=== PATIENT | male | born 1950 | race Caucasian/White ===

== ENCOUNTER 2019-02-07 05:02 | Emergency (ER) | payer OTHER, SELFPAY ==
--- NOTE | 2019-02-07 05:04 | DI.RAD.S_ITS ---
PROCEDURE: XR CHEST 1V INDICATIONS: Chest pain TECHNIQUE: One view of the chest was acquired. COMPARISON: None. FINDINGS: Surgical changes and devices: None. Lungs and pleura: Lungs are clear. No pleural effusions or pneumothorax. Mediastinum: Mediastinal contours appear normal. Heart size is normal. Bones and chest wall: No suspicious bony lesions. Overlying soft tissues appear unremarkable. IMPRESSION: No acute cardiopulmonary disease process. Dictated by: Michelle Upton MD, PhD on 02/07/2019 at 9:45 Approved by: Michelle Upton MD, PhD on 02/07/2019 at 9:45
[2019-02-07 05:12] VITALS: BP 160/74; PULSE 56; RESP 16; TEMP 36.9; O2SAT 98; BMI 30.1
--- NOTE | 2019-02-07 05:20 | ED.CHESTPAIN ---
HPI - Chest Pain General Chief Complaint: Chest Pain Stated Complaint: chest pain 1/2 hr ago has hx Time Seen by Provider: 02/07/19 05:03 Source: patient and family Mode of arrival: Ambulatory Limitations: no limitations History of Present Illness HPI narrative: 69-year-old male with history of coronary artery disease. Back in 2017 he stated that he had a event that led to stents and angioplasty in his LAD. Stated that approximately half an hour prior to arrival here in the emergency department he was lying on his left side sleeping and was woken up by sharp left-sided chest pain that went away when he rolled onto his back. He states that he does not think it was associated with palpation. No shortness of breath. The time was visit here to the emergency department he was symptom free. Patient states that 48 hours ago he was seen at a outside emergency department and [facility] for chest discomfort. He states that it was slightly different than what brought him into the emergency department today. He states that time he had labs, EKG, echocardiogram and a nuclear stress test that were all low risk. He states that he was seen by orthotic/prosthetic practitioner and was ?given a clean bill of health ? Related Data Home Medications Medication Instructions Recorded Confirmed aspirin 81 mg PO HS #0 09/30/16 esomeprazole magnesium [Nexium] 40 mg PO BID #0 09/30/16 lovastatin 40 mg PO HS #0 09/30/16 Allergies Allergy/AdvReac Type Severity Reaction Status Date / Time No Known Allergies Allergy Uncoded 06/24/17 13:02 Review of Systems Constitutional Constitutional: Denies fever(s) Cardiovascular Cardiovascular: Reports chest pain, Denies palpitations and Denies dyspnea Respiratory Respiratory: Denies dyspnea Gastrointestinal Gastrointestinal: Denies abdominal pain, Denies nausea and Denies vomiting Musculoskeletal Musculoskeletal: Denies myalgias and Denies arthralgias Integumentary/Breasts Skin/Breast: Denies rash Neurologic Neurologic: Denies behavioral changes Psychiatric Psychiatric: Denies behavioral changes Endocrine Endocrine: Denies palpitations Hematologic/Lymphatic Hematologic/Lymphatic: Denies easy bleeding and Denies easy bruising Patient History Medical History Coronary artery disease (Acute) Gastroesophageal reflux disease (Acute) Social History Smoking Status: Never smoker alcohol intake frequency: a few times a month Exam Initial Vital Signs Initial Vital Signs: Vital Signs Temperature 98.4 F 02/07/19 05:12 Pulse Rate 56 L 02/07/19 05:12 Respiratory Rate 16 02/07/19 05:12 Blood Pressure 160/74 H 02/07/19 05:12 Pulse Oximetry 98 02/07/19 05:12 Const General: cooperative, comfortable and well developed Orientation: alert, awake and oriented x3 HENMT Head: normal to inspection and normocephalic Chest Chest: No tenderness Resp Effort & Inspection: normal respiratory effort Auscultation: clear to auscultation bilaterally Cardio Rate: regular rate Rhythm: regular rhythm GI Inspection: non-distended Palpation: soft, No firm and No tender Skin Lesions: no lesions Rashes: no rashes Neuro General: alert, awake and oriented x3 Cognition: normal cognition Speech: speech normal Gait: normal gait Extrem General: normal to inspection and capillary refill normal Psych Appearance: grossly normal and well kempt Course Orders Ordered: ED Orders 02/07/19 05:04 XR chest 1V Stat Complete Blood Count AUTO DIFF Stat Comprehensive Metabolic Panel Stat Lipase Stat Troponin I Stat EKG-12 Lead Stat Vital Signs Vital signs: Vital Signs - 8 hr 02/07/19 05:12 02/07/19 05:23 Temperature 98.4 F Pulse Rate 56 L 49 L Respiratory Rate 16 16 Blood Pressure 160/74 H Blood Pressure [Right Arm] 160/74 H Pulse Oximetry 98 97 MDM - Chest Pain Imaging Data Chest x-ray: Attestation: I personally reviewed and interpreted this imaging study as follows: My impression: No pneumothorax, normal size heart ECG Data Attestation: I personally reviewed and interpreted this ECG as follows: Prior ECG tracings: not available for review Interpretation: Sinus bradycardia Ventricular rate of 49 Normal axis QRS duration 115 milliseconds Normal QTC No ST T wave changes MDM Narrative Medical decision making narrative: I did have the specific paperwork from his visit 48 hours ago however the patient's had discharge paperwork with him. On that paperwork and stated that he did have a nuclear medicine stress test that was low risk. The patient states that he also had an echocardiogram and also was evaluated by orthotic/prosthetic practitioner. His symptoms today are not consistent with cardiac etiology. Was a sharp pain that completely resolved when he rolled on his back. This is more consistent with musculoskeletal etiology. His chest x-ray was unremarkable. This is all in the setting of having after fairly extensive workup 48 hours ago. His EKG is unremarkable. Feel like we could hold on laboratory testing for now. I tried to provide reassurance to the patient and his . They did expressed understanding of this. They are going to contact his orthotic/prosthetic practitioner and his primary doctor later today. He was given return precautions. Expressed understanding and agreement with plan. Discharge Plan Departure Patient Disposition: Home Clinical Impression: Atypical chest pain Instructions: DI for Atypical Chest Pain Activity Restrictions/Additional Instructions: Continue all of your medications as directed. I do recommend that you contact your primary provider and your orthotic/prosthetic practitioner today to discuss any further workup. Return to the emergency department for any new or worsening symptoms Prescriptions: No Action lovastatin 40 MG tablet 40 mg PO HS Qty: 0 RF: 0 aspirin 81 MG tablet,delayed release (DR/EC) 81 mg PO HS Qty: 0 RF: 0 esomeprazole magnesium [Nexium] 40 MG capsule,delayed release(DR/EC) 40 mg PO BID Qty: 0 RF: 0 Referrals: Jordan Lemus MD [Primary Care Provider] -
[2019-02-07 05:23] VITALS: BP 160/74; PULSE 49; RESP 16; O2SAT 97
== END 2019-02-07 05:53 | disposition home or self-care (01) ==
PROVIDERS: Emergency Provider Emergency Medicine; Family Provider Family Medicine; PCP Family Medicine
DX: R07.89 Other chest pain (principal); R00.1 Bradycardia, unspecified; I24.9 Acute ischemic heart disease, unspecified
CPT/HCPCS: 71045; 93005; 99283; 99284

== ENCOUNTER → 2019-12-21 10:39 | Outpatient (CLI) | payer OTHER, SELFPAY ==
--- NOTE | 2019-12-21 | DI.RAD.S_ITS ---
PROCEDURE: FL BARIUM SWALLOW INDICATIONS: ACID REFLUX COMPARISON: [facility], , BARIUM SWALLOW, 01/20/2017, 13:02. FINDINGS: Function: There is normal esophageal peristalsis. There is a moderate degree of both spontaneous and elicited gastroesophageal reflux. There is a small to moderate-sized sliding hiatal hernia without evidence of distal esophageal stricture erosion or mass. Morphology: Air-contrast images demonstrate normal mucosal morphology. Single contrast views show no esophageal strictures, extrinsic mass effects, or diverticula. Limited images of the stomach demonstrate normal appearance. IMPRESSION: Small to moderate sliding hiatal hernia with moderate episodic spontaneous and elicited gastroesophageal reflux. The esophagus does not show evidence of stricture or mass, or erosions. Reflux was seen to extend cephalad toward the glottic level at several points in the examination. Dictated by: Wan Scott M.D. on 12/21/2019 at 13:00 Approved by: Wan Scott M.D. on 12/21/2019 at 13:27
== END ==
PROVIDERS: Family Provider Family Medicine; PCP Family Medicine; Referring Provider Family Medicine; Visit Provider Family Medicine
DX: K21.9 Gastro-esophageal reflux disease without esophagitis (principal); K44.9 Diaphragmatic hernia without obstruction or gangrene
CPT/HCPCS: 74220

== ENCOUNTER → 2020-02-23 09:32 | Outpatient (CLI) | payer OTHER, SELFPAY ==
[2020-02-23 11:20] LABS: COVID19 -Nasal RAPID Negative (Negative)
== END ==
PROVIDERS: PCP Family Medicine; Visit Provider Surgery
DX: Z01.812 Encounter for preprocedural laboratory examination (principal); Z20.828 Contact with and (suspected) exposure to other viral communicable diseases
CPT/HCPCS: 87635; C9803

== ENCOUNTER 2020-02-24 08:53 | Day surgery (SDC) | payer OTHER, SELFPAY ==
[2020-02-24] VITALS (13 sets, daily range): BP systolic 94–115; BP diastolic 57–72; PULSE 54–65; RESP 10–16; TEMP 36.1–36.4; O2SAT 92–96; BMI 31.5
--- NOTE | 2020-02-24 | PATH_ITS ---
[facility] Accession Number: [id number] . 01 Material submitted: . PART A: duodenum - DUODENUM PART B: stomach - STOMACH PART C: stomach - STOMACH POLYP PART D: esophagus - DISTAL ESOPHAGUS . 02 Diagnosis: A. Duodenum, Biopsy: Duodenal mucosa with no diagnostic abnormality. Negative for active inflammation, features of sprue, dysplasia, or malignancy. . B. Stomach, Biopsy: Gastric antral mucosa with mild chronic inflammation. Negative for Helicobacter organisms by immunohistochemistry. Negative for intestinal metaplasia. Negative for dysplasia or malignancy. . C. Stomach Polyp, Biopsy: Fundic gland polyp. No evidence of Helicobacter organisms on H/E stain. Negative for intestinal metaplasia. Negative for dysplasia and malignancy. . D. Distal Esophagus, Biopsies: Squamous mucosa with mild reactive features of reflux esophagitis. Focally up to 10 eosinophils per high-power field. No columnar mucosa present for evaluation. Negative for dysplasia or malignancy. Additional step sections examined. [facility] 02/29/2020 1226 Local . 02 Electronically signed: . Dion Tilley MD, PhD, Pathologist NPI- [id number] . 01 Gross description: . Part A: DUODENUM: Received in formalin is 1 fragment(s) of avina, soft tissue measuring 0.4 x 0.3 x 0.1 cm submitted entirely in 1 cassette(s) Part B: STOMACH: Received in formalin are 4 fragment(s) of avina, soft tissue measuring 0.3 x 0.3 x 0.1 cm to 0.1 x 0.1 x 0.1 cm submitted entirely in 1 cassette(s) Part C: STOMACH POLYP: Received in formalin are 2 fragment(s) of avina, soft tissue measuring 0.6 x 0.3 x 0.4 cm to 0.4 x 0.4 x 0.3 cm submitted entirely in 1 cassette(s) Part D: DISTAL ESOPHAGUS: Received in formalin are 3 fragment(s) of avina, soft tissue measuring 0.4 x 0.3 x 0.1 cm to 0.2 x 0.1 x 0.1 cm submitted entirely in 1 cassette(s) /QBJ 02/25/2020 1023 Local . 02 Microscopic: . B) An immunohistochemical stain was performed to evaluate for Helicobacter organisms and is negative. The control stain showed appropriate reactivity. . * This test was developed and its performance characteristics determined by [facility]. It has not been cleared or approved by the U.S. Food and Drug Administration. The FDA has determined that such clearance or approval is not necessary. This test is used for clinical purposes. It should not be regarded as investigational or for research. . 02 Pathologist provided ICD-10: K29.70, K31.7, K20.90 . 02 CPT . 666620, 258437, 664908, 177246, F81888 Performed at: 01 [facility] [address] [place] [address], [place], [place] [id number] MD Eliud Khan MD Phone: [phone] Performed at: 02 [facility] [address] [place], [place] [id number] MD Leonor Cardoso MD Phone: [phone]
[2020-02-24] MEDS: SODIUM CHLORIDE 0.9% 1,000 ML 200 ML IV (09:15)
--- NOTE | 2020-02-24 10:21 | PM.PREOP ---
Pre-operative Note COVID-19 COVID-19 status: Negative Result date/Date tested (Pos, Neg/Pending): 02/23/20 Interval Note History & Physical reviewed/Exam performed by Physician: Yes Changes to H&P: No ASA Class (for procedural sedation): II
--- NOTE | 2020-02-24 10:34 | P.OP.ENDO_ITS ---
Operative Date/Time/Diagnoses Date of procedure: 02/24/20 Time of procedure: 10:34 Pre-op diagnosis: History of Sims's esophagus, due for surveillance Post-op diagnosis: other (Normal appearing duodenum, benign-appearing gastric polyps, 5 cm hiatal hernia without ulceration, otherwise normal appearing distal esophagus without visible esophagitis) Procedure & Clinicians Study performed: Esophagogastroduodenoscopy Procedural sedation performed by the endoscopist Biopsies of duodenum, stomach, distal esophagus with standard forceps Removal of gastric polyp with cold snare Same procedure as scheduled: Yes Indications: History of Sims's esophagus; due for surveillance Surgeon: Maricruz Trinh Procedure Notes SCOAP/Timeout: Performed Procedure in detail: The patient was brought to the room and placed in left lateral decubitus position with all bony prominences padded. A bite block was positioned in the patient's mouth to protect the lips, teeth, and tongue for the procedure. A time-out was performed and then the patient was given procedural sedation starting with 4 mg of Versed and 100 mcg of fentanyl. Additional 2 mg of Versed were given during the procedure. Vitals were monitored throughout the procedure and remained stable. Once adequately sedated, the procedure was begun. The lubricated gastroscope was passed through the bite block and across the tongue and into the esophagus without incident. A tubular view of the esophagus was maintained as the scope was advanced through the esophagus and into the stomach. The scope was advanced through the stomach and to the pylorus. The scope was gently popped through the pylorus and into the duodenal bulb. The scope was flexed and advanced into the second and third portions of the duodenum. The duodenum and duodenal bulb appeared normal. Biopsies were taken. The scope was withdrawn into the stomach. There were many benign- appearing gastric polyps, consistent with PPI use. The stomach otherwise appeared normal. Two gastric polyps were removed and sent for pathology. Biopsies were taken of the stomach to rule out H pylori. The scope was retroflexed and the gastric cardia was examined. Hill grade 2-3 hiatal hernia was seen with mild gaping around the scope. No Jake ulcers or other abnormalities were seen. The scope was then straightened, and withdrawn into the esophagus. The crural pinch was seen at 40 cm, and the line of 35 cm, indicative of a 5 cm hiatal hernia. The Z-line appeared otherwise normal. The distal esophagus appeared normal. No visual evidence of esophagitis or Sims's esophagus Biopsies were taken. The scope was then withdrawn through the esophagus with a tubular view. The scope was then withdrawn from the patient the procedure was concluded. The patient tolerated the procedure well and was transferred to the PACU in stable condition. Sedation minutes: 15 Findings: hiatal hernia (5 cm, without complications) and other findings (Gastric polyps) Specimen(s): other (Biopsies of duodenum, distal esophagus, stomach. Gastric polyps.) Complications: none Impression: Well controlled up reflux disease with PPI use. Benign-appearing gastric polyps which was secondary to PPI use. Moderate hiatal hernia, without signs of complication. Post-procedure Recommendations: EGD in 3 years (Depending on biopsy results. We will send a final confirmatory letter once biopsy results return.) Follow up: as needed Disposition: PACU
[2020-02-24] MEDS: fentaNYL 250 MCG/5 ML INJ IV (10:37)
[2020-02-24] MEDS: LIDOCAINE 4% SOLN 50 ML 20 ML TOP (10:38)
[2020-02-24] MEDS: MIDAZOLAM 5 MG/5 ML VIAL IV (10:40)
--- NOTE | 2020-02-24 11:31 | SUR.PHASEI ---
report received, assume care at this time.
== END 2020-02-24 12:11 | disposition home or self-care (01) ==
PROVIDERS: PCP Family Medicine; Referring Provider Surgery; Visit Provider Surgery
PROC: 0DJ08ZZ Inspection of Upper Intestinal Tract, Via Natural or Artificial Opening Endoscopic (ICD-10-PCS; CPT 43235; principal; 2020-02-24 10:00)
DX: K21.00 Gastro-esophageal reflux disease with esophagitis, without bleeding (principal); I25.10 Atherosclerotic heart disease of native coronary artery without angina pectoris; I10 Essential (primary) hypertension; E66.9 Obesity, unspecified; Z68.32 Body mass index [BMI] 32.0-32.9, adult; K44.9 Diaphragmatic hernia without obstruction or gangrene; K31.7 Polyp of stomach and duodenum; K29.50 Unspecified chronic gastritis without bleeding
CPT/HCPCS: 43239; 99152; J2250; J3010

== ENCOUNTER 2020-08-01 04:27 | Emergency (ER) | payer OTHER, SELFPAY ==
--- NOTE | 2020-08-01 04:35 | ED_ITS ---
HPI - General Adult General Chief complaint: Abdominal Pain Stated complaint: tightness in abdomen,has to work to breathe/stent Time Seen by Provider: 08/01/20 04:30 History of Present Illness HPI narrative: 70-year-old gentleman with a history of hypertension, cardiac stents placed in 2017, Sims's esophagus, chronic constipation controlled with daily MiraLax presents with mid abdominal tightness that was significant enough that he was unable to get to sleep again. Does not describe it as ?pain?. It lasted approximately 40 minutes and currently is minimally noticeable. He desc ribes passing gas and normal bowel movements. No fever, cough, chills, dyspnea although he does work note that he felt like he had to work harder to breathe well the upper abdominal tightness was present. States that this pain is not like that that led to his recent stents. He states he has some chronic right shoulder pain and actually has an appointment scheduled later today with orthopedic surgeon for further evaluation. Also notes that he had a nuclear stress test at [facility] in [place] in February of 2020 that was reportedly unremarkable. Related Data Home Medications Medication Instructions Recorded Confirmed aspirin 81 mg PO HS #0 09/30/16 08/01/20 esomeprazole magnesium [Nexium] 40 mg PO BID #0 09/30/16 08/01/20 atorvastatin 40 mg tablet 40 mg PO DAILY 01/26/20 08/01/20 isosorbide mononitrate 30 mg 30 mg PO DAILY 01/26/20 08/01/20 tablet,extended release 24 hr lisinopril 2.5 mg tablet 2.5 mg PO DAILY 01/26/20 08/01/20 metoprolol succinate 25 mg capsule 25 mg PO DAILY 01/26/20 08/01/20 sprinkle, ext. release 24 hr Allergies Allergy/AdvReac Type Severity Reaction Status Date / Time No Known Drug Allergies Allergy Verified 02/24/20 09:06 Review of Systems Review of Systems Narrative: Remainder of complete review of systems is otherwise unremarkable e xcept for that included in the HPI. Patient History Medical History (Updated 08/01/20 @ 06:02 by Jovanna Hameed MD) Barretts esophagus Coronary artery disease Gastroesophageal reflux disease Sleep apnea Surgical History History of intravascular stent placement Family History Unknown Hypertension Heart disease Social History household members: spouse Smoking Status: Never smoker Smoking Status: Never smoker alcohol intake frequency: a few times a week Substance Use Type: does not use Exam Narrative Exam Narrative: General: Healthy appearing, in no acute distress. Able to give a complete and coherent history. Well-nourished well-developed HEENT: Moist mucous membranes, normal sclera with reactive pupils, Neck: No JVD, supple Respiratory: Lungs are clear to auscultation, no wheezing no rales no rhonchi. Full and symmetrical air movement Cardiac: Regular rate and rhythm no murmurs no bruits Abdomen: Soft, nontender, good bowel tones, no flank pain Skin: Warm and dry, no rashes Neurologic: Grossly neurologically intact with no obvious asymmetries or abnormalities Extremities: No trauma, well perfused Psych: Cooperative, appropriate insight and affect Initial Vital Signs Initial Vital Signs: Vital Signs Temperature 98.2 F 08/01/20 04:38 Pulse Rate 54 L 08/01/20 04:38 Respiratory Rate 17 08/01/20 04:38 Blood Pressure 164/74 H 08/01/20 04:38 Pulse Oximetry 98 08/01/20 04:38 Course Orders Ordered: ED Orders 08/01/20 EKG-12 Lead Stat 08/01/20 04:55 Complete Blood Count AUTO DIFF Stat Comprehensive Metabolic Panel Stat Lipase Stat Troponin I Stat 08/01/20 04:56 XR chest 1V Stat Vital Signs Vital signs: Vital Signs - 8 hr 08/01/20 04:38 Temperature 98.2 F Pulse Rate 54 L Respiratory Rate 17 Blood Pressure 164/74 H Pulse Oximetry 98 Medical Decision Making Medical Records Medical records reviewed: Yes I reviewed the patient's medical records. Lab Data Lab results reviewed: Yes I reviewed the patient's lab results. Result diagrams: 08/01/20 04:55 08/01/20 04:55 Labs: Lab Results 08/01/20 08/01/20 Range/Units 04:55 04:55 WBC 6.9 (4.5-11.0) X10^3/uL RBC 4.63 (4.5-5.9) X10^6/uL Hgb 15.1 (13.5-17.5) g/dL Hct 43.8 (41-53) % MCV 94.6 (80-100) fL MCH 32.5 (26-34) PG MCHC 34.4 (30-36) % RDW 12.4 (11.6-14.8) % Plt Count 240 (150-400) X10^3/uL Neut % (Auto) 40.8 L (50-75) % Lymph % (Auto) 41.9 H (25-40) % Wilbarger % (Auto) 8.8 (3-14) % Eos % (Auto) 5.4 H (2-4) % Baso % (Auto) 3.1 H (0-2) % Neut # (Auto) 2800 (0675-7942) /uL Lymph # (Auto) 2900 (4467-1613) /uL Wilbarger # (Auto) 600 (0-900) /uL Eos # (Auto) 400 (0-450) /uL Baso # (Auto) 200 H (0-100) /uL Sodium 141 (137-145) mmol/L Potassium 4.3 (3.4-5.1) mmol/L Chloride 107 (98-107) mmol/L Carbon Dioxide 27 (22-32) mmol/L BUN 13 (9-20) mg/dL Creatinine 0.88 (0.66-1.25) mg/dL Estimated GFR > 60.0 (>60) mL/min BUN/Creatinine Ratio 14.8 (6-22) Glucose 111 H (80-110) mg/dL Calcium 8.9 (8.4-10.2) mg/dL Total Bilirubin 0.5 (0.2-1.3) mg/dL AST 38 (17-59) IU/L ALT 38 (<50) IU/L Alkaline Phosphatase 80 (38-126) U/L Troponin I < 0.012 (0.01-0.034) ng/mL Total Protein 7.1 (6.3-8.2) g/dL Albumin 4.1 (3.5-5.0) g/dL Globulin 3.0 (1.7-4.1) g/dL Albumin/Globulin Ratio 1.4 (1.0-2.8) Lipase 109 (23-300) U/L Imaging Data Chest x-ray: Radiologist's Impression: No acute findings Hernandez Willson MD ECG Data Attestation: I personally reviewed and interpreted this ECG as follows: Interpretation: Sinus rhythm at a rate of 57 Normal intervals, normal axis No acute ischemic changes MDM Narrative Medical decision making narrative: 70-year-old gentleman presents with 40 minutes of tightness over the upper section of his abdomen that now has essentially resolved. Nuclear medicine stress testing within the last 6 months was unremarkable. He has no abdominal pain on exam at this time. It was not specifically associated with food. Lipase and LFTs are normal. He is not tender over the right upper quadrant/gallbladder area. EKG, chest x-ray and troponins are all unremarkable. At this point do not 6 affect acute coronary syndrome, pneumonia, cholecystitis or acute cholelithiasis, GI bleeding, pancreatitis. Quality of pain and exam do not support abdominal aneurysm or aneurysm rupture. Do not suspect aortic dissection. Constipation could certainly be part of the issue. If he has recurrent episodes of similar pain than right upper quadrant ultrasound might be warranted. With no evidence of life-threatening issues apparent today, reassurance is given. Reviewed all labs and findings. Patient is safe for home discharge Discharge Plan Departure Patient Disposition: Home Clinical Impression: Abdominal pain Qualifiers: Abdominal location: upper abdomen, unspecified Qualified Code(s): R10.10 - Upper abdominal pain, unspecified Instructions: DI for Abdominal Pain-Adult Activity Restrictions/Additional Instructions: Thank you for coming in today I did not find life-threatening cause to explain your pain today. Specifically I found no evidence for heart attack or heart attack like syndrome, bleeding in her stomach, pneumonia, liver or gallbladder problems pancreatitis. Given the upper abdominal span of the tightness, it may be that this is your transverse colon. If pain resolves after your next bowel movement it would suggest that it is related to your colon. If you have worsening pain or develop new symptoms please feel free to return to the emergency department in a.m. happy to rethink and re-evaluate. I hope you feel better Prescriptions: No Action aspirin 81 MG tablet,delayed release (DR/EC) 81 mg PO HS Qty: 0 RF: 0 esomeprazole magnesium [Nexium] 40 MG capsule,delayed release(DR/EC) 40 mg PO BID Qty: 0 RF: 0 metoprolol succinate 25 mg capsule,sprinkle,ER 24hr 25 mg PO DAILY RF: 0 lisinopril 2.5 mg tablet 2.5 mg PO DAILY RF: 0 atorvastatin 40 mg tablet 40 mg PO DAILY RF: 0 isosorbide mononitrate 30 mg tablet extended release 24 hr 30 mg PO DAILY RF: 0
[2020-08-01 04:38] VITALS: BP 164/74; PULSE 54; RESP 17; TEMP 36.8; O2SAT 98; BMI 31.5
[2020-08-01 04:56] VITALS: BP 133/67; PULSE 52; RESP 13; O2SAT 97
--- NOTE | 2020-08-01 04:56 | DI.RAD.S_ITS ---
PROCEDURE: XR CHEST 1V INDICATIONS: chest and upper abdominal pain TECHNIQUE: One view of the chest was acquired. COMPARISON: [facility], CR, XR CHEST 1V, 02/07/2019, 5:15. FINDINGS: Surgical changes and devices: None. Lungs and pleura: Lungs are clear. No pleural effusions or pneumothorax. Mediastinum: Mediastinal contours appear normal. Heart size is normal. Bones and chest wall: No suspicious bony lesions. Overlying soft tissues appear unremarkable. IMPRESSION: No acute cardiopulmonary disease process. Dictated by: Michelle Upton MD, PhD on 08/01/2020 at 9:09 Approved by: Michelle Upton MD, PhD on 08/01/2020 at 9:09
[2020-08-01 05:02] VITALS: BP 131/60; PULSE 54; RESP 12; O2SAT 96
[2020-08-01 05:07] LABS: Add Manual Diff / Slide Review NO; Basophils Absolute Auto 200 /uL (0-100); Basophils Percent Auto 3.1 % (0-2); Eosinophils Absolute Auto 400 /uL (0-450); Eosinophils Percent Auto 5.4 % (2-4); Hematocrit 43.8 % (41-53); Hemoglobin 15.1 g/dL (13.5-17.5); Lymphocytes Absolute Auto 2900 /uL (1100-4500); Lymphocytes Percent Auto 41.9 % (25-40); Mean Corpuscular HGB Conc 34.4 % (30-36); Mean Corpuscular Hemoglobin 32.5 PG (26-34); Mean Corpuscular Volume 94.6 fL (80-100); Monocytes Absolute Auto 600 /uL (0-900); Monocytes Percent Auto 8.8 % (3-14); Neutrophils Absolute Auto 2800 /uL (1500-7000); Neutrophils Percent Auto 40.8 % (50-75); Platelet Count 240 X10^3/uL (150-400); Red Blood Cell Count 4.63 X10^6/uL (4.5-5.9); Red Cell Distribution Width 12.4 % (11.6-14.8); White Blood Cell Count 6.9 X10^3/uL (4.5-11.0)
[2020-08-01 05:12] LABS: Alanine Aminotransferase 38 IU/L (<50); Albumin 4.1 g/dL (3.5-5.0); Albumin Globulin Ratio 1.4 (1.0-2.8); Alkaline Phosphatase 80 U/L (38-126); Aspartate Aminotransferase 38 IU/L (17-59); BUN Creatinine Ratio 14.8 (6-22); Bilirubin Total 0.5 mg/dL (0.2-1.3); Blood Urea Nitrogen 13 mg/dL (9-20); Calcium 8.9 mg/dL (8.4-10.2); Carbon Dioxide 27 mmol/L (22-32); Chloride 107 mmol/L (98-107); Estimated Glomerular Filt Rate > 60.0 mL/min (>60); Glucose 111 mg/dL (80-110); HEMOLYSIS 38 (0-50); Lipase 109 U/L (23-300); Potassium 4.3 mmol/L (3.4-5.1); Sodium 141 mmol/L (137-145); Total Protein 7.1 g/dL (6.3-8.2)
[2020-08-01 05:23] LABS: Troponin I < 0.012 ng/mL (0.01-0.034)
[2020-08-01 05:30] VITALS: BP 131/71; PULSE 51; RESP 11; O2SAT 95
[2020-08-01 06:17] VITALS: BP 149/80; PULSE 50; RESP 18; O2SAT 96
== END 2020-08-01 06:12 | disposition home or self-care (01) ==
PROVIDERS: Emergency Provider Emergency Medicine
DX: R10.10 Upper abdominal pain, unspecified (principal); R07.9 Chest pain, unspecified
CPT/HCPCS: 36415; 71045; 80053; 83690; 84484; 85025; 93005; 93010; 99283; 99284

== ENCOUNTER → 2021-02-19 07:34 | Outpatient (CLI) | payer OTHER, SELFPAY ==
[2021-02-19 07:57] LABS: Add Manual Diff / Slide Review NO; Basophils Absolute Auto 0 /uL (0-100); Basophils Percent Auto 0.6 % (0-2); Eosinophils Absolute Auto 300 /uL (0-450); Eosinophils Percent Auto 4.2 % (2-4); Hemoglobin 15.3 g/dL (13.5-17.5); Lymphocytes Absolute Auto 2700 /uL (1100-4500); Lymphocytes Percent Auto 39.3 % (25-40); Mean Corpuscular HGB Conc 34.8 % (30-36); Mean Corpuscular Hemoglobin 32.1 PG (26-34); Mean Corpuscular Volume 92.3 fL (80-100); Monocytes Absolute Auto 600 /uL (0-900); Monocytes Percent Auto 9.3 % (3-14); Neutrophils Absolute Auto 3200 /uL (1500-7000); Neutrophils Percent Auto 46.6 % (50-75); Platelet Count 259 X10^3/uL (150-400); Red Blood Cell Count 4.77 X10^6/uL (4.5-5.9); Red Cell Distribution Width 12.6 % (11.6-14.8); White Blood Cell Count 6.8 X10^3/uL (4.5-11.0)
[2021-02-19 08:06] LABS: Hemoglobin A1C% w Est Avg Glu 5.5 % (4.0-6.0)
[2021-02-19 08:10] LABS: Alanine Aminotransferase 42 IU/L (<50); Albumin 4.5 g/dL (3.5-5.0); Albumin Globulin Ratio 1.4 (1.0-2.8); Alkaline Phosphatase 74 U/L (38-126); Aspartate Aminotransferase 41 IU/L (17-59); BUN Creatinine Ratio 18.8 (6-22); Bilirubin Total 1.1 mg/dL (0.2-1.3); Blood Urea Nitrogen 18 mg/dL (9-20); Calcium 9.4 mg/dL (8.4-10.2); Carbon Dioxide 27 mmol/L (22-32); Chloride 103 mmol/L (98-107); Cholesterol 166 mg/dL (140-199); Estimated Glomerular Filt Rate > 60.0 mL/min (>60); Globulin 3.2 g/dL (1.7-4.1); Glucose 120 mg/dL (80-110); HDL Cholesterol 53 mg/dL (40-60); HEMOLYSIS 29 (0-50); LDL Cholesterol Calculated 83 mg/dL (<100); Potassium 5.1 mmol/L (3.4-5.1); Sodium 138 mmol/L (137-145); Total Protein 7.7 g/dL (6.3-8.2); Triglycerides 151 mg/dL (35-150)
[2021-02-19 08:38] LABS: Prostate Specific Antigen Scrn 1.05 ng/mL (0.1-4.0)
[2021-02-19 08:40] LABS: TSH w/ Reflex to FT4 1.85 uIU/mL (0.47-4.68)
== END ==
PROVIDERS: PCP Family Medicine; Referring Provider Family Medicine; Visit Provider Family Medicine
DX: E66.9 Obesity, unspecified (principal); I25.10 Atherosclerotic heart disease of native coronary artery without angina pectoris; E78.5 Hyperlipidemia, unspecified; R53.83 Other fatigue; Z00.00 Encounter for general adult medical examination without abnormal findings; Z12.5 Encounter for screening for malignant neoplasm of prostate
CPT/HCPCS: 36415; 80053; 80061; 83036; 84443; 85025; G0103

== ENCOUNTER → 2021-05-04 09:45 | Outpatient (CLI) | payer OTHER, SELFPAY ==
[2021-05-04 10:08] LABS: Add Manual Diff / Slide Review NO; Basophils Absolute Auto 0 /uL (0-100); Basophils Percent Auto 0.6 % (0-2); Eosinophils Absolute Auto 200 /uL (0-450); Eosinophils Percent Auto 2.7 % (2-4); Hematocrit 44.4 % (41-53); Hemoglobin 15.5 g/dL (13.5-17.5); Lymphocytes Absolute Auto 1700 /uL (1100-4500); Lymphocytes Percent Auto 26.5 % (25-40); Mean Corpuscular HGB Conc 34.8 % (30-36); Mean Corpuscular Hemoglobin 32.4 PG (26-34); Mean Corpuscular Volume 92.9 fL (80-100); Monocytes Absolute Auto 400 /uL (0-900); Monocytes Percent Auto 6.8 % (3-14); Neutrophils Absolute Auto 4100 /uL (1500-7000); Neutrophils Percent Auto 63.4 % (50-75); Platelet Count 251 X10^3/uL (150-400); Red Blood Cell Count 4.78 X10^6/uL (4.5-5.9); White Blood Cell Count 6.5 X10^3/uL (4.5-11.0)
[2021-05-04 10:13] LABS: Appearance Urine UA CLEAR; Bilirubin Urine UA NEGATIVE (NEGATIVE); Color Urine UA YELLOW; Glucose Urine UA NEGATIVE (Negative); Ketones Urine UA NEGATIVE (NEGATIVE); Leukocyte Esterase Urine UA NEGATIVE (NEGATIVE); Nitrite Urine UA NEGATIVE (Negative); Occult Blood Urine UA NEGATIVE (Negative); Protein Urine UA NEGATIVE (Negative); Specific Gravity Urine UA <=1.005 (1.000-1.035); Urobilinogen Urine UA 0.2 E.U./dL (0.2); pH Urine UA 6.5 (4.5-8.0)
[2021-05-04 10:18] LABS: Alanine Aminotransferase 43 IU/L (<50); Albumin 4.6 g/dL (3.5-5.0); Albumin Globulin Ratio 1.3 (1.0-2.8); Alkaline Phosphatase 93 U/L (38-126); Aspartate Aminotransferase 46 IU/L (17-59); BUN Creatinine Ratio 20.2 (6-22); Blood Urea Nitrogen 19 mg/dL (9-20); Carbon Dioxide 29 mmol/L (22-32); Chloride 105 mmol/L (98-107); Estimated Glomerular Filt Rate > 60.0 mL/min (>60); Globulin 3.5 g/dL (1.7-4.1); Glucose 115 mg/dL (80-110); HEMOLYSIS < 15 (0-50); Lipase 92 U/L (23-300); Potassium 4.9 mmol/L (3.4-5.1); Sodium 137 mmol/L (137-145); Total Protein 8.1 g/dL (6.3-8.2)
== END ==
PROVIDERS: PCP Family Medicine; Referring Provider Physician Assistant; Visit Provider Physician Assistant
DX: R10.9 Unspecified abdominal pain (principal)
CPT/HCPCS: 36415; 80053; 81003; 83690; 85025

== ENCOUNTER → 2021-06-25 12:33 | Outpatient (CLI) | payer OTHER, SELFPAY ==
--- NOTE | 2021-06-25 | DI.RAD.S_ITS ---
PROCEDURE: XR HAND LT MIN 3V INDICATIONS: left 4th finger injury TECHNIQUE: Three views of the hand acquired. COMPARISON: None. FINDINGS: Bones: A small minimally displaced intra-articular fracture is seen at the radial volar base of the 4th proximal phalanx. Soft tissues: No suspicious soft tissue calcifications. IMPRESSION: Small minimally displaced intra-articular fracture at the radial aspect of the 4th proximal phalanx. Dictated by: Tomás Carias M.D. on 06/25/2021 at 16:19 Approved by: Tomás Carias M.D. on 06/25/2021 at 16:20
== END ==
PROVIDERS: PCP Family Medicine; Referring Provider Family Medicine; Visit Provider Family Medicine
DX: S62.645A Nondisplaced fracture of proximal phalanx of left ring finger, initial encounter for closed fracture (principal); X58.XXXA Exposure to other specified factors, initial encounter
CPT/HCPCS: 73130

== ENCOUNTER → 2021-07-06 13:05 | Outpatient (CLI) | payer OTHER, SELFPAY ==
[2021-07-06 14:06] LABS: Influenza A - CEPHEID Flu A NEGATIVE (NEGATIVE); Influenza B - CEPHEID Flu B NEGATIVE (NEGATIVE)
[2021-07-06 14:39] LABS: COVID-19 CEPHEID PCR (VTM/NP) POSITIVE (Negative)
== END ==
PROVIDERS: PCP Family Medicine; Visit Provider Nurse Practitioner Family
DX: U07.1 COVID-19 (principal); R05.9 Cough, unspecified; Z20.822 Contact with and (suspected) exposure to COVID-19
CPT/HCPCS: 0240U

== ENCOUNTER → 2021-10-01 08:09 | Outpatient (CLI) | payer OTHER, SELFPAY ==
--- NOTE | 2021-10-01 | DI.US.S_ITS ---
PROCEDURE: US ABD AORTA ANEURYSM SCREEN INDICATIONS: AAA SCREENING TECHNIQUE: Real time scanning was performed of the aorta and iliac arteries, with image documentation. COMPARISON: [facility], US, ABDOMEN COMPLETE, 06/24/2012, 11:06. [facility], US, ABDOMEN COMPLETE, 09/21/2014, 9:05. [facility], CT, ABDOMEN/PELVIS WITH CONTRAST, 01/04/2016, 7:31. FINDINGS: Aorta: Proximal aortic diameter measures 2.7 cm. Mid-aorta measures 2 cm. Distal aortic diameter is 1.8 cm. Iliac arteries: Right common iliac artery measures 1 cm. Left common iliac artery measures 1.1 cm. IMPRESSION: Negative for aneurysm. Dictated by: Chino Rivers M.D. on 10/01/2021 at 9:25 Approved by: Chino Rivers M.D. on 10/01/2021 at 9:27
== END ==
PROVIDERS: PCP Family Medicine; Referring Provider Family Medicine; Visit Provider Family Medicine
DX: Z13.6 Encounter for screening for cardiovascular disorders (principal)
CPT/HCPCS: 76706

== ENCOUNTER → 2023-01-08 14:28 | Outpatient (CLI) | payer OTHER, SELFPAY ==
--- NOTE | 2023-01-08 | DI.US.S_ITS ---
PROCEDURE: US SCROTUM INDICATIONS: right testicular pain TECHNIQUE: Real-time scanning was performed of the scrotum and testicles, with image documentation. Color and pulse Doppler interrogation was performed of both testicles. COMPARISON: None. FINDINGS: Right: Testicle is normal in size at 4.1 x 2.3 x 3.5 cm, and homogenous in echotexture. Epididymis is normal in overall size and morphology. Moderate hydrocele. No varicoceles. Overlying scrotal skin is normal in thickness. Left: Testicle is normal in size at 4.1 x 2.9 x 3.4 cm, and homogeneous in echotexture. Epididymis is normal in overall size and morphology. Small hydrocele. No varicoceles. Overlying scrotal skin is normal in thickness. Doppler: Color and pulse Doppler demonstrate normal and symmetric arterial flow in both testicles. IMPRESSION: 1. Normal testicles bilaterally. No findings to suggest testicular torsion. No testicular mass. 2. Normal epididymis bilaterally. 3. Moderate right and small left hydroceles. Dictated by: Luz Romero M.D. on 01/08/2023 at 16:09 Approved by: Luz Romero M.D. on 01/08/2023 at 16:11
== END ==
PROVIDERS: PCP Family Medicine; Referring Provider Family Medicine; Visit Provider Family Medicine
DX: N50.811 Right testicular pain (principal); N43.3 Hydrocele, unspecified
CPT/HCPCS: 76870

== ENCOUNTER 2023-07-11 17:51 | Emergency (ER) | payer OTHER, SELFPAY ==
[2023-07-11] VITALS (7 sets, daily range): BP systolic 129–149; BP diastolic 64–76; PULSE 52–63; RESP 7–18; TEMP 36.7; O2SAT 95–99; BMI 29.4
--- NOTE | 2023-07-11 17:54 | DI.RAD.S_ITS ---
PROCEDURE: XR CHEST 1V INDICATIONS: chest pain TECHNIQUE: One view of the chest was acquired. COMPARISON: [facility], CR, XR CHEST 1V, 08/01/2020, 5:08. FINDINGS: Surgical changes and devices: None. Lungs and pleura: Lungs are clear. No pleural effusions or pneumothorax. Mediastinum: Mediastinal contours appear normal. Heart size is normal. Bones and chest wall: No suspicious bony lesions. Overlying soft tissues appear unremarkable. IMPRESSION: No acute cardiopulmonary abnormality is seen. Dictated by: Kamila Colorado M.D. on 07/11/2023 at 18:17 Approved by: Kamila Colorado M.D. on 07/11/2023 at 18:17
--- NOTE | 2023-07-11 17:59 | ED.CHESTPAIN ---
HPI - Chest Pain General Chief Complaint: Chest Pain Stated Complaint: chest pain Time Seen by Provider: 07/11/23 17:55 History of Present Illness HPI narrative: Patient is a 73-year-old male history of coronary artery disease with stent, hyperlipidemia presenting today with chest pain. He is followed by [facility] head and nuclear stress test September 2022. States that while he was on a ladder screwing things into a wall he had areas of pinpoint pain lasted less than a minute. Quickly resolved then at dinner he turned his neck and again there were same areas of pain. It has not really reproducible to palpation he denies any shortness of breath. He says this feels nothing like his previous heart attack when he pain radiating up to his jaw and into his back. He reports that he did just travel to [place] they drove for couple hours in the car. Denies any leg swelling Related Data Home Medications Medication Instructions Recorded Confirmed aspirin 81 mg tablet,delayed 81 mg PO HS ##0 09/30/16 10/13/22 release atorvastatin 40 mg tablet 40 mg PO DAILY 01/26/20 10/13/22 isosorbide mononitrate 30 mg 30 mg PO DAILY 01/26/20 10/13/22 tablet,extended release 24 hr lisinopril 2.5 mg tablet 2.5 mg PO DAILY 01/26/20 10/13/22 metoprolol succinate 25 mg capsule 25 mg PO DAILY 01/26/20 10/13/22 sprinkle, ext. release 24 hr pantoprazole 40 mg tablet,delayed 40 mg PO DAILY 08/04/22 10/13/22 release Allergies Allergy/AdvReac Type Severity Reaction Status Date / Time No Known Drug Allergies Allergy Verified 07/11/23 18:02 Patient History Medical History Barretts esophagus Coronary artery disease Gastroesophageal reflux disease Sleep apnea Surgical History History of intravascular stent placement Family History Unknown Hypertension Heart disease Social History household members: spouse Smoking Status: Never smoker Smoking Status: Never smoker alcohol intake frequency: a few times a week Substance Use Type: does not use Exam Initial Vital Signs Initial Vital Signs: Vital Signs Temperature 98.1 F 07/11/23 17:59 Pulse Rate 63 07/11/23 17:59 Respiratory Rate 16 07/11/23 17:59 Blood Pressure 147/76 H 07/11/23 17:59 Pulse Oximetry 99 07/11/23 17:59 Oxygen Delivery Method Room Air 07/11/23 17:59 GENERAL: Alert pleasant well-appearing 73-year-old male and in no acute distress. HEENT: Head atraumatic,EOMI, pupils reactive, face symmetric, moist mucous membranes CARDIOVASCULAR: Regular rate and rhythm without murmurs, rubs or gallops. Pain is not reproducible with palpation RESPIRATORY: Breath sounds equal bilaterally, no wheezes rales or rhonchi. ABDOMEN: Soft, nontender. Normoactive bowel sounds all 4 quadrants. No guarding or rebound. EXTREMITIES: Normal range of motion, no clubbing or edema. Neurovascularly intact NEUROLOGICAL: Alert and oriented x4.Normal gait and speech. SKIN: Warm, dry, no laceration, no petechiae, no rashes or lesions. Scores HEART Score Heart Score history: Slightly Suspicious Heart Score EKG: Normal Heart Score Age: > or = 65 years old Heart Score risk factors: > 3 risk factors or hx of atherosclerotic disease Heart Score troponin: < or = to normal limit Heart Score Total: 4 Course Orders Ordered: ED Orders 07/11/23 17:54 XR chest 1V Stat 07/11/23 18:02 D Dimer Stat 07/11/23 18:03 EKG-12 Lead Stat 07/11/23 18:05 Complete Blood Count AUTO DIFF Stat Comprehensive Metabolic Panel Stat Lipase Stat Magnesium Stat PTT Partial Thromboplastin [place] Stat Prothrombin Time INR Stat Troponin & CK Cardiac Panel Stat 07/11/23 20:10 Troponin I Stat 07/11/23 20:20 EKG-12 Lead Routine Discontinued Medications Sodium Chloride (Sodium Chloride 0.9% Flush) 10 ml IV BID LIONEL Sodium Chloride (Sodium Chloride 0.9% Flush) 10 ml IV PRN PRN PRN Reason: Flush Vital Signs Vital signs: Vital Signs - 8 hr 07/11/23 17:59 07/11/23 18:13 07/11/23 18:30 Temperature 98.1 F Pulse Rate 63 60 56 L Respiratory Rate 16 18 7 L Blood Pressure 147/76 H Pulse Oximetry 99 96 96 Oxygen Delivery Method Room Air 07/11/23 18:30 07/11/23 19:00 07/11/23 19:00 Temperature Pulse Rate 54 L Respiratory Rate 12 Blood Pressure 129/64 132/71 Pulse Oximetry 95 Oxygen Delivery Method 07/11/23 19:30 07/11/23 19:30 07/11/23 20:00 Temperature Pulse Rate 54 L 52 L Respiratory Rate 10 L 18 Blood Pressure 149/71 H Pulse Oximetry 95 95 Oxygen Delivery Method 07/11/23 20:00 07/11/23 20:30 07/11/23 20:30 Temperature Pulse Rate 53 L Respiratory Rate 16 Blood Pressure 138/69 142/73 H Pulse Oximetry 96 Oxygen Delivery Method MDM - Chest Pain Lab Data 07/11/23 18:05 07/11/23 18:05 Labs: Lab Results 07/11/23 07/11/23 07/11/23 Range/Units 18:02 18:05 20:10 WBC 7.6 (4.5-11.0) X10^3/uL RBC 4.76 (4.5-5.9) X10^6/uL Hgb 15.6 (13.5-17.5) g/dL Hct 45.6 (41-53) % MCV 95.7 (80-100) fL MCH 32.7 (26-34) PG MCHC 34.2 (30-36) % RDW 12.9 (11.6-14.8) % Plt Count 237 (150-400) X10^3/uL Neut % (Auto) 57.6 (50-75) % Lymph % (Auto) 31.2 (25-40) % [place] % (Auto) 6.9 (3-14) % Eos % (Auto) 3.8 (2-4) % Baso % (Auto) 0.5 (0-2) % Neut # (Auto) 4400 (9831-0287) /uL Lymph # (Auto) 2400 (1839-5037) /uL [place] # (Auto) 500 (0-900) /uL Eos # (Auto) 300 (0-450) /uL Baso # (Auto) 0 (0-100) /uL PT 11.1 (9.4-12.5) SECONDS INR 1.0 (0.9-1.3) APTT 37 H (25.1-36.5) SECONDS D-Dimer < 215 (<500) ng/ml Sodium 139 (137-145) mmol/L Potassium 4.1 (3.4-5.1) mmol/L Chloride 105 (98-107) mmol/L Carbon Dioxide 28 (22-32) mmol/L BUN 22 H (9-20) mg/dL Creatinine 0.97 (0.66-1.25) mg/dL Estimated GFR > 60 (>60) mL/min BUN/Creatinine Ratio 22.7 H (6-22) Glucose 130 H (80-110) mg/dL Calcium 9.2 (8.4-10.2) mg/dL Magnesium 2.3 (1.6-2.3) mg/dL Total Bilirubin 1.0 (0.2-1.3) mg/dL AST 40 (17-59) IU/L ALT 43 (<50) IU/L Alkaline Phosphatase 71 (38-126) U/L Total Creatine Kinase 434 H (55-170) U/L Troponin I < 0.012 < 0.012 (0.01-0.034) ng/mL Total Protein 7.9 (6.3-8.2) g/dL Albumin 4.8 (3.5-5.0) g/dL Globulin 3.1 (1.7-4.1) g/dL Albumin/Globulin Ratio 1.5 (1.0-2.8) Lipase 89 (23-300) U/L Imaging Data Chest x-ray: Radiologist's Impression: PROCEDURE: XR CHEST 1V INDICATIONS: chest pain TECHNIQUE: One view of the chest was acquired. COMPARISON: [facility], , XR CHEST 1V, 08/01/2020, 5:08. FINDINGS: Surgical changes and devices: None. Lungs and pleura: Lungs are clear. No pleural effusions or pneumothorax. Mediastinum: Mediastinal contours appear normal. Heart size is normal. Bones and chest wall: No suspicious bony lesions. Overlying soft tissues appear unremarkable. IMPRESSION: No acute cardiopulmonary abnormality is seen. Dictated by: Kamila Colorado M.D. on 07/11/2023 at 18:17 Approved by: Kamila Colorado M.D. on 07/11/2023 at 18:17 ECG Data Interpretation: Normal sinus rhythm rate 65 NC interval 166 QRS 110 QTC 420 or noted in lead 3 with T-wave inversions similar to previous EKGs in 2020 EKG 2. Sinus rhythm rate 53 no ischemic changes similar to previous MDM Narrative Medical decision making narrative: Patient 73-year-old male history of coronary artery disease presents today with chest pain. He has had 2 episodes of chest discomfort today lasting less than a minute. He is 2- troponins and negative chest x-ray. He did recently travel his D-dimer is negative he has a negative years score. Chest x-ray has been reviewed and negative EKG has been reviewed no ischemic changes Patient does have known coronary artery disease no the stent in his LAD over symptoms of chest discomfort lasting less than 1 minute are unlikely to be cardiac. No ischemic changes and negative troponins also reassuring. He had a nuclear stress test less than 1 year ago which was also negative boy do not have specific record of that. He recently traveled on a car trip considered pulmonary embolism however D-dimer is negative years score is also 0 no need for further evaluation. This time recommend he follow-up with umbrella finisher and return as needed YEARS Algorithm for Pulmonary Embolism (PE) from [employer] on 07/11/2023 All calculations should be rechecked by clinician prior to use RESULT SUMMARY: PE excluded YEARS algorithm rules out PE (0.43% with symptomatic VTE during 3-month follow-up) INPUTS: patient ?> 0 = No Clinical signs of DVT ?> 0 = No Hemoptysis ?> 0 = No PE most likely diagnosis ?> 0 = No D-dimer >=,000 ng/mL ?> 0 = No Discharge Plan Departure Patient Disposition: Home Clinical Impression: Atypical chest pain Instructions: DI for Atypical Chest Pain Activity Restrictions/Additional Instructions: *You have been diagnosed with atypical chest pain *What to do: At this time blood work is overall reassuring. I do strongly recommend that you call and follow up with your umbrella finisher. *Continue to take medications as directed *Follow up with your primary care provider in 2-3 days or call [phone] *Return to ER if you should have increasing chest pain shortness of breath [or] any new, worsening or concerning symptoms Prescriptions: No Action aspirin 81 MG tablet,delayed release (DR/EC) 81 mg PO HS Qty: 0 metoprolol succinate 25 mg capsule,sprinkle,ER 24hr 25 mg PO DAILY lisinopril 2.5 mg tablet 2.5 mg PO DAILY atorvastatin 40 mg tablet 40 mg PO DAILY isosorbide mononitrate 30 mg tablet extended release 24 hr 30 mg PO DAILY pantoprazole 40 mg tablet,delayed release (DR/EC) 40 mg PO DAILY Referrals: Marco Stark MD [Primary Care Provider] - Stand Alone Forms: Patient Portal/API
[2023-07-11 18:13] LABS: Add Manual Diff / Slide Review NO; Basophils Absolute Auto 0 /uL (0-100); Basophils Percent Auto 0.5 % (0-2); Eosinophils Absolute Auto 300 /uL (0-450); Eosinophils Percent Auto 3.8 % (2-4); Hematocrit 45.6 % (41-53); Hemoglobin 15.6 g/dL (13.5-17.5); Lymphocytes Absolute Auto 2400 /uL (1100-4500); Lymphocytes Percent Auto 31.2 % (25-40); Mean Corpuscular HGB Conc 34.2 % (30-36); Mean Corpuscular Hemoglobin 32.7 PG (26-34); Mean Corpuscular Volume 95.7 fL (80-100); Monocytes Absolute Auto 500 /uL (0-900); Monocytes Percent Auto 6.9 % (3-14); Neutrophils Absolute Auto 4400 /uL (1500-7000); Neutrophils Percent Auto 57.6 % (50-75); Platelet Count 237 X10^3/uL (150-400); Red Blood Cell Count 4.76 X10^6/uL (4.5-5.9); Red Cell Distribution Width 12.9 % (11.6-14.8); White Blood Cell Count 7.6 X10^3/uL (4.5-11.0)
[2023-07-11 18:23] LABS: Prothrombin Time 11.1 SECONDS (9.4-12.5)
[2023-07-11 18:26] LABS: PTT Partial Thromboplastin Tim 37 SECONDS (25.1-36.5)
[2023-07-11 18:28] LABS: Alanine Aminotransferase 43 IU/L (<50); Albumin 4.8 g/dL (3.5-5.0); Albumin Globulin Ratio 1.5 (1.0-2.8); Alkaline Phosphatase 71 U/L (38-126); Aspartate Aminotransferase 40 IU/L (17-59); BUN Creatinine Ratio 22.7 (6-22); Blood Urea Nitrogen 22 mg/dL (9-20); Calcium 9.2 mg/dL (8.4-10.2); Carbon Dioxide 28 mmol/L (22-32); Chloride 105 mmol/L (98-107); Creatine Kinase 434 U/L (55-170); Estimated Glomerular Filt Rate > 60 mL/min (>60); Globulin 3.1 g/dL (1.7-4.1); Glucose 130 mg/dL (80-110); HEMOLYSIS < 15 (0-50); Lipase 89 U/L (23-300); Magnesium 2.3 mg/dL (1.6-2.3); Potassium 4.1 mmol/L (3.4-5.1); Sodium 139 mmol/L (137-145); Total Protein 7.9 g/dL (6.3-8.2)
[2023-07-11 18:39] LABS: Troponin I < 0.012 ng/mL (0.01-0.034)
[2023-07-11 18:43] LABS: D Dimer < 215 ng/ml (<500)
[2023-07-11 20:43] LABS: Troponin I < 0.012 ng/mL (0.01-0.034)
== END 2023-07-11 21:06 | disposition home or self-care (01) ==
PROVIDERS: Emergency Provider Emergency Medicine; PCP Family Medicine
DX: R07.89 Other chest pain (principal); I25.10 Atherosclerotic heart disease of native coronary artery without angina pectoris; Z95.5 Presence of coronary angioplasty implant and graft
CPT/HCPCS: 36415; 71045; 80053; 82550; 83690; 83735; 84484; 85025; 85379; 85610; 85730; 93005; 99283; 99284

== ENCOUNTER → 2023-09-09 07:23 | Outpatient (CLI) | payer OTHER, SELFPAY ==
[2023-09-09 08:06] LABS: Hemoglobin A1C% w Est Avg Glu 5.7 % (4.0-6.0)
[2023-09-09 09:41] LABS: Cholesterol 136 mg/dL (140-199); HDL Cholesterol 50 mg/dL (40-60); LDL Cholesterol Calculated 73 mg/dL (<100); Triglycerides 67 mg/dL (35-150)
== END ==
LOC: LAB 07:24
PROVIDERS: PCP Family Medicine; Referring Provider Family Medicine; Visit Provider Family Medicine
DX: R73.03 Prediabetes (principal); E78.5 Hyperlipidemia, unspecified; I25.10 Atherosclerotic heart disease of native coronary artery without angina pectoris; I10 Essential (primary) hypertension
CPT/HCPCS: 36415; 80061; 83036

== ENCOUNTER → 2024-01-22 14:07 | Outpatient (CLI) | payer OTHER, SELFPAY ==
[2024-01-22 15:41] LABS: Microalbumin Urine Random < 0.6 mg/dL (0-1.6)
[2024-01-22 18:04] LABS: Creatinine Urine Random 19.85 mg/dL
== END ==
PROVIDERS: PCP Family Medicine; Referring Provider Family Medicine; Visit Provider Family Medicine
DX: I10 Essential (primary) hypertension (principal)
CPT/HCPCS: 82043; 82570

== ENCOUNTER 2024-01-31 06:33 | Emergency (ER) | payer OTHER, SELFPAY ==
[2024-01-31 06:39] VITALS: BP 191/86; PULSE 63; RESP 18; TEMP 36.5; O2SAT 97; BMI 30.1
--- NOTE | 2024-01-31 06:43 | ED_ITS ---
HPI - URI/Sore Throat <Lise Acevedo MD - Last Filed: 01/31/24 21:16> General Chief Complaint: Upper Respiratory Symptoms Stated Complaint: swollen throat, cant swallow Time Seen by Provider: 01/31/24 06:34 Source: patient Mode of arrival: Ambulatory History of Present Illness HPI Narrative: 74-year-old male with history of coronary artery disease, prediabetes presents with 1 day of sore throat with painful swallowing. Patient states that yesterday symptoms started, seeming to be worse on the left-hand side. He took a dose of ibuprofen last night, but this morning he continued to have a sore throat and felt like there was swelling present. He took his vitals at home and he says that his baseline heart rate was 10-15 points higher than his baseline. He had a negative home COVID test but was concerned he may have strep throat so he decided to present for evaluation. Denies fevers, voice changes, other complaints Related Data Home Medications Medication Instructions Recorded Confirmed aspirin 81 mg tablet,delayed 81 mg PO HS ##0 09/30/16 01/22/24 release isosorbide mononitrate 30 mg 30 mg PO DAILY 01/26/20 01/22/24 tablet,extended release 24 hr lisinopril 2.5 mg tablet 2.5 mg PO DAILY 01/26/20 01/22/24 metoprolol succinate 25 mg capsule 25 mg PO DAILY 01/26/20 01/22/24 sprinkle, ext. release 24 hr empagliflozin 25 mg tablet 25 mg PO DAILY Pre Diabetes 01/22/24 01/22/24 (Jardiance) Previous Rx's Medication Instructions Recorded empagliflozin 25 mg tablet 25 mg PO DAILY #90 tabs 07/26/23 (Jardiance) Contour Next test strips #100 ea 10/12/23 atorvastatin 40 mg tablet 80 mg (2 x 40 mg) PO DAILY #180 12/22/23 tabs esomeprazole magnesium 20 mg 20 mg PO BID #180 caps 01/11/24 capsule,delayed release Allergies Allergy/AdvReac Type Severity Reaction Status Date / Time No Known Drug Allergies Allergy Verified 01/22/24 13:51 Patient History <Lise Acevedo MD - Last Filed: 01/31/24 21:16> Medical History Acute coronary syndrome Barretts esophagus (12/27/19) Sleep apnea Gastroesophageal reflux disease Coronary artery disease Surgical History History of intravascular stent placement Family History Unknown Hypertension Heart disease Social History household members: spouse Smoking Status: Never smoker alcohol intake: current (6-7 servings weekly) substance use type: does not use Smoking Status: Never smoker alcohol intake frequency: a few times a week Substance Use Type: does not use Exam <Lise Acevedo MD - Last Filed: 01/31/24 21:16> Initial Vital Signs Initial Vital Signs: Vital Signs Temperature 97.7 F 01/31/24 06:39 Pulse Rate 63 01/31/24 06:39 Respiratory Rate 18 01/31/24 06:39 Blood Pressure 191/86 H 01/31/24 06:39 Pulse Oximetry 97 01/31/24 06:39 Oxygen Delivery Method Room Air 01/31/24 06:39 Const: Awake, alert, no acute distress, nontoxic appearing HEENT: pharyneal erythema with moderate edema, no obvious exudates. No peritonsillar abscess present Skin: Warm, Dry, intact, no rashes Neuro: AO x3, CN II-XII grossly intact, moves all extremities <Jordan Wills DO - Last Filed: 01/31/24 08:20> Initial Vital Signs Initial Vital Signs: Vital Signs Temperature 97.7 F 01/31/24 06:39 Pulse Rate 63 01/31/24 06:39 Respiratory Rate 18 01/31/24 06:39 Blood Pressure 191/86 H 01/31/24 06:39 Pulse Oximetry 97 01/31/24 06:39 Oxygen Delivery Method Room Air 01/31/24 06:39 Course <Lise Acevedo MD - Last Filed: 01/31/24 21:16> Orders Ordered: Discontinued Medications Dexamethasone (Dexamethasone 10 Mg/Ml Vial) 10 mg PO NOW ONE Stop: 01/31/24 06:43 Last Admin: 01/31/24 06:46 Dose: 10 mg Documented By: LS Lidocaine HCl (Lidocaine Viscous 2% 15 Ml Solution) 15 ml PO NOW ONE Stop: 01/31/24 06:43 Last Admin: 01/31/24 06:46 Dose: 15 ml Documented By: MICHAEL Vital Signs Vital signs: Vital Signs - 8 hr 01/31/24 06:39 01/31/24 07:00 01/31/24 07:15 Temperature 97.7 F Pulse Rate 63 61 64 Respiratory Rate 18 Blood Pressure 191/86 H Pulse Oximetry 97 96 96 Oxygen Delivery Method Room Air 01/31/24 07:15 01/31/24 07:30 Temperature Pulse Rate 60 Respiratory Rate Blood Pressure 137/73 Pulse Oximetry 94 Oxygen Delivery Method <Jordan Wills DO - Last Filed: 01/31/24 08:20> Orders Ordered: Discontinued Medications Dexamethasone (Dexamethasone 10 Mg/Ml Vial) 10 mg PO NOW ONE Stop: 01/31/24 06:43 Last Admin: 01/31/24 06:46 Dose: 10 mg Documented By: MICHAEL Lidocaine HCl (Lidocaine Viscous 2% 15 Ml Solution) 15 ml PO NOW ONE Stop: 01/31/24 06:43 Last Admin: 01/31/24 06:46 Dose: 15 ml Documented By: MICAHEL Vital Signs Vital signs: Vital Signs - 8 hr 01/31/24 06:39 01/31/24 07:00 01/31/24 07:15 Temperature 97.7 F Pulse Rate 63 61 64 Respiratory Rate 18 Blood Pressure 191/86 H Pulse Oximetry 97 96 96 Oxygen Delivery Method Room Air 01/31/24 07:15 01/31/24 07:30 Temperature Pulse Rate 60 Respiratory Rate Blood Pressure 137/73 Pulse Oximetry 94 Oxygen Delivery Method MDM - URI/Sore Throat <Lise Acevedo MD - Last Filed: 01/31/24 21:16> Lab Data Labs: Lab Results 01/31/24 01/31/24 Range/Units 06:48 07:52 SARS-CoV-2 (PCR) Negative (Negative) Influenza A (RT-PCR) Flu a negative (NEGATIVE) Influenza B (RT-PCR) Flu b negative (NEGATIVE) RSV (PCR) Negative (Negative) Group A Strep (PCR) Negative (Negative) MDM Narrative Medical decision making narrative: 1 day of pharyngitis symptoms. Patient does appear to have some erythema and mild to moderate edema on exam, no evidence of peritonsillar abscess. Vital signs unremarkable in the emergency department. Patient only endorses prediabetes, a dose of Decadron given for sore throat and tonsillar edema. Viscous lidocaine ordered for comfort. Strep and flu swabs ordered for assessment. <Jordan Wills, DO - Last Filed: 01/31/24 08:20> Lab Data Labs: Lab Results 01/31/24 01/31/24 Range/Units 06:48 07:52 SARS-CoV-2 (PCR) Negative (Negative) Influenza A (RT-PCR) Flu a negative (NEGATIVE) Influenza B (RT-PCR) Flu b negative (NEGATIVE) RSV (PCR) Negative (Negative) Group A Strep (PCR) Negative (Negative) MDM Narrative Medical decision making narrative: 1 day of pharyngitis symptoms. Patient does appear to have some erythema and mild to moderate edema on exam, no evidence of peritonsillar abscess. Vital s igns unremarkable in the emergency department. Patient only endorses prediabetes, a dose of Decadron given for sore throat and tonsillar edema. Viscous lidocaine ordered for comfort. Strep and flu swabs ordered for assessment. Dr wills: Received turned over. Review patient's history and physical exam. Rapid strep was negative. Low suspicion for peritonsillar abscess/retropharyngeal abscess. No respiratory distress. His COVID/flu/RSV is also negative. I do suspect viral etiology. No indication for antibiotics. A throat culture was pending at the time of discharge. Discharge home with return precautions. He expressed understanding and agreement with plan. Discharge Plan Departure Patient Disposition: Home Clinical Impression: Pharyngitis Instructions: Sore Throat Activity Restrictions/Additional Instructions: Continue to take all of your medications as directed. You can try [id number] medicines such as Cepacol drops and Chloraseptic sprays to try to help with the sore throat. There was a throat culture pending at the time of your discharge and we will contact you if this is positive. Return to the emergency department for new symptoms. Prescriptions: No Action Jardiance 25 mg tablet 25 mg PO DAILY aspirin 81 MG tablet,delayed release (DR/EC) 81 mg PO HS Qty: 0 Jardiance 25 mg tablet 25 mg PO DAILY Qty: 90 3RF (DME) Contour Next test strips See Rx Instructions .Route .MEDSUPPLY Qty: 100 11RF Rx Instructions: As directed twice daily atorvastatin 40 mg tablet 80 mg PO DAILY Qty: 180 1RF esomeprazole magnesium 20 mg capsule,delayed release(DR/EC) 20 mg PO BID Qty: 180 1RF metoprolol succinate 25 mg capsule,sprinkle,ER 24hr 25 mg PO DAILY lisinopril 2.5 mg tablet 2.5 mg PO DAILY isosorbide mononitrate 30 mg tablet extended release 24 hr 30 mg PO DAILY Referrals: Chester Guillermo MD [Primary Care Provider] - Stand Alone Forms: Patient Portal/API/Survey
[2024-01-31] MEDS: LIDOCAINE VISCOUS 2% 15 ML SOLUTION PO (06:46)
[2024-01-31] MEDS: DEXAMETHASONE 10 MG/ML VIAL PO (06:46)
[2024-01-31 07:00] VITALS: PULSE 61; O2SAT 96
[2024-01-31 07:15] VITALS: BP 137/73; PULSE 64; O2SAT 96
[2024-01-31 07:30] VITALS: PULSE 60; O2SAT 94
--- NOTE | 2024-01-31 07:32 | PC.NURSE ---
Addendum entered by Kesha Espinal R.N. 01/31/24 07:43: Pt reports he has not started any new medications; pt denies being exposed to anyone sick. Addendum entered by Kesha Espinal R.N. 01/31/24 07:37: Pt reports taking ibuprofen at home to help with pain. Original Note: Enlarged lymph nodes in neck. Pt reports ear pain; but not today. Pt states he has had sinus congestion and sore throat. Pt reports tonsillectomy. Pt unable to participate w/ tongue depressor due to gag reflux. Respirations regular and unlabored. Pt reports taking lisinopril for 17+ years. No angioedema noted.
[2024-01-31 07:43] LABS: Influenza A - CEPHEID Flu A NEGATIVE (NEGATIVE); Influenza B - CEPHEID Flu B NEGATIVE (NEGATIVE); Respiratory Syncytial Virus Negative (Negative)
[2024-01-31 07:44] LABS: COVID-19 CEPHEID 4-PLEX PCR Negative (Negative)
[2024-01-31 08:08] LABS: Strep Grp A by PCR Rapid Negative (Negative)
[2024-01-31 08:21] VITALS: TEMP 36.7
== END 2024-01-31 08:22 | disposition home or self-care (01) ==
PROVIDERS: Emergency Medicine; Emergency Provider Emergency Medicine; PCP Family Medicine
DX: J02.9 Acute pharyngitis, unspecified (principal); Z11.52 Encounter for screening for COVID-19
CPT/HCPCS: 0241U; 36415; 87070; 87651; 99283; J1100

== ENCOUNTER → 2024-02-09 09:41 | Outpatient (CLI) | payer OTHER, SELFPAY ==
--- NOTE | 2024-02-09 09:42 | DI.RAD.S_ITS ---
PROCEDURE: XR CHEST 2V INDICATIONS: cough TECHNIQUE: 2 views of the chest were acquired. COMPARISON: [facility], CR, XR CHEST 1V, 07/11/2023, 18:02. FINDINGS: Surgical changes and devices: None. Lungs and pleura: Lungs are clear. No pleural effusions or pneumothorax. Mediastinum: Mediastinal contours are normal. Heart size is normal. Bones and chest wall: No suspicious bony abnormalities. Soft tissues appear unremarkable. IMPRESSION: No acute cardiopulmonary abnormality is seen. Dictated by: Sintia Carcamo M.D. on 02/09/2024 at 11:27 Approved by: Sintia Carcamo M.D. on 02/09/2024 at 11:28
== END ==
PROVIDERS: PCP Family Medicine; Referring Provider Family Medicine; Visit Provider Family Medicine
DX: R05.9 Cough, unspecified (principal)
CPT/HCPCS: 71046

== ENCOUNTER → 2024-07-22 07:09 | Outpatient (CLI) | payer OTHER, SELFPAY ==
[2024-07-22 08:00] LABS: Hematocrit 46.3 % (41-53); Hemoglobin 16.1 g/dL (13.5-17.5); Mean Corpuscular HGB Conc 34.8 % (30-36); Mean Corpuscular Hemoglobin 32.7 PG (26-34); Mean Corpuscular Volume 93.9 fL (80-100); Platelet Count 250 X10^3/uL (150-400); Red Blood Cell Count 4.93 X10^6/uL (4.5-5.9); Red Cell Distribution Width 13.2 % (11.6-14.8); White Blood Cell Count 5.9 X10^3/uL (4.5-11.0)
[2024-07-22 08:09] LABS: Hemoglobin A1C% w Est Avg Glu 5.6 % (4.0-6.0)
[2024-07-22 08:40] LABS: Alanine Aminotransferase 47 IU/L (<50); Albumin 4.4 g/dL (3.5-5.0); Albumin Globulin Ratio 1.6 (1.0-2.8); Alkaline Phosphatase 92 U/L (38-126); Aspartate Aminotransferase 51 IU/L (17-59); BUN Creatinine Ratio 20.6 (6-22); Bilirubin Total 0.8 mg/dL (0.2-1.3); Blood Urea Nitrogen 21 mg/dL (9-20); Calcium 9.3 mg/dL (8.4-10.2); Carbon Dioxide 24 mmol/L (22-32); Chloride 107 mmol/L (98-107); Cholesterol 172 mg/dL (140-199); Estimated Glomerular Filt Rate > 60 mL/min (>60); Globulin 2.8 g/dL (1.7-4.1); Glucose 119 mg/dL (70-99); HDL Cholesterol 56 mg/dL (40-60); HEMOLYSIS < 15 (0-50); LDL Cholesterol Calculated 94 mg/dL (<100); Potassium 4.7 mmol/L (3.4-5.1); Sodium 139 mmol/L (137-145); Total Protein 7.2 g/dL (6.3-8.2); Triglycerides 112 mg/dL (35-150)
[2024-07-22 09:38] LABS: Hep C Virus Ab w/Reflex Quant NEGATIVE s/c (NEGATIVE)
[2024-07-22 09:59] LABS: Creatinine Urine Random 57.96 mg/dL
[2024-07-22 10:10] LABS: Microalbumin Urine Random < 0.6 mg/dL (0-1.6)
== END ==
PROVIDERS: PCP Family Medicine; Referring Provider Family Medicine; Visit Provider Family Medicine
DX: R73.03 Prediabetes (principal); I25.10 Atherosclerotic heart disease of native coronary artery without angina pectoris; Z11.59 Encounter for screening for other viral diseases; Z13.9 Encounter for screening, unspecified; I10 Essential (primary) hypertension; E78.5 Hyperlipidemia, unspecified
CPT/HCPCS: 36415; 80053; 80061; 82043; 82570; 83036; 85027; 86803

== ENCOUNTER → 2024-12-13 06:48 | Outpatient (CLI) | payer OTHER, SELFPAY ==
[2024-12-13 08:17] LABS: Cholesterol 189 mg/dL (140-199); HDL Cholesterol 57 mg/dL (40-60); Triglycerides 184 mg/dL (35-150); VLDL Cholesterol Calculated 37 mg/dL (2-30)
== END ==
PROVIDERS: PCP Family Medicine; Referring Provider Family Medicine; Visit Provider Family Medicine
DX: E78.5 Hyperlipidemia, unspecified (principal); I25.10 Atherosclerotic heart disease of native coronary artery without angina pectoris
CPT/HCPCS: 36415; 80061

== ENCOUNTER → 2025-02-27 09:27 | Outpatient (CLI) | payer OTHER, SELFPAY ==
[2025-02-27 11:59] LABS: Cholesterol 162 mg/dL (140-199); HDL Cholesterol 64 mg/dL (40-60); Triglycerides 113 mg/dL (35-150)
== END ==
PROVIDERS: PCP Family Medicine; Referring Provider Family Medicine; Visit Provider Family Medicine
DX: E78.5 Hyperlipidemia, unspecified (principal)
CPT/HCPCS: 36415; 80061